=== PATIENT | female | born 1995 | race Hispanic/Latino ===

== ENCOUNTER 2016-08-12 08:33 | Emergency (ER) | payer BC ==
[2016-08-12 09:25] VITALS: BMI 27.3
[2016-08-12 09:28] VITALS: TEMP 99.7
[2016-08-12 09:35] VITALS: BP 108/66; PULSE 108; RESP 19; O2SAT 98
--- NOTE | 2016-08-12 09:44 | ED PDOC ---
Arrival/HPI - General Historian: Patient - General Chief Complaint: Flu-like Symptoms Time Seen by Provider: 08/12/16 09:22 - History of Present Illness Narrative History of Present Illness (Text): 08/12/16 09:41 21yo female with no PMHx present with complaint of body ache, sore throat and headache since this morning. The mother who was by the bedside states both her and her son was recently treated for sinusitis and worried that she might have sinusitis. Pt however denies nasal congestion, rhinorrhea, fever, chills, abdominal pain, nausea, vomiting, any other complaint. (Marques,Marielena A) Past Medical History - Provider Review Nursing Documentation Reviewed: Yes - Infectious Disease Hx of Infectious Diseases: None - Psychiatric Hx Depression: No Hx Emotional Abuse: No Hx Physical Abuse: No Hx Substance Use: No - Past Surgical History Past Surgical History: No Previous - Anesthesia Hx Anesthesia: No - Suicidal Assessment Feels Threatened In Home Enviroment: No Family/Social History - Physician Review Nursing Documentation Reviewed: Yes Family/Social History: Unknown Family HX Smoking Status: Never Smoked Hx Alcohol Use: No Hx Substance Use: No Hx Substance Use Treatment: No Allergies/Home Meds Allergies/Adverse Reactions: Allergies No Known Allergies Allergy (Verified 08/12/16 09:23) Review of Systems - Physician Review All systems were reviewed & negative as marked: Yes - Review of Systems Constitutional: Normal Eyes: Normal ENT: Sore Throat Respiratory: Normal Cardiovascular: Normal Gastrointestinal: Normal Genitourinary Female: Normal Musculoskeletal: Normal Skin: Normal Neurological: Headache Endocrine: Normal Hemo/Lymphatic: Normal Psychiatric: Normal Physical Exam Vital Signs Reviewed: Yes Temperature: Afebrile Blood Pressure: Normal Pulse: Regular Respiratory Rate: Normal Appearance: Positive for: Well-Appearing, Non-Toxic, Comfortable Pain Distress: None Mental Status: Positive for: Alert and Oriented X 3 - Systems Exam Head: Present: Atraumatic, Normocephalic Pupils: Present: PERRL Extroacular Muscles: Present: EOMI Conjunctiva: Present: Normal Mouth: Present: Moist Mucous Membranes Pharnyx: Present: ERYTHEMA. No: EXUDATE, TONSILS ENLARGED, Peritonsilar Swelling, Uvular Deviation, Muffled/Hoarse Voice, Strider, Soft Palate/Uvular Edema Neck: Present: Normal Range of Motion Respiratory/Chest: Present: Clear to Auscultation, Good Air Exchange. No: Respiratory Distress, Accessory Muscle Use Cardiovascular: Present: Regular Rate and Rhythm, Normal S1, S2. No: Murmurs Abdomen: Present: Normal Bowel Sounds. No: Tenderness, Distention, Peritoneal Signs Back: Present: Normal Inspection Upper Extremity: Present: Normal Inspection. No: Cyanosis, Edema Lower Extremity: Present: Normal Inspection. No: Edema Neurological: Present: GCS=15, CN II-XII Intact, Speech Normal, Motor Func Grossly Intact, Normal Sensory Function, Normal Cerebellar Funct, Norm Deep Tendon Reflexes, Gait Normal, Memory Normal, Other (No focal neurological deficit) Skin: Present: Warm, Dry, Normal Color. No: Rashes Psychiatric: Present: Alert, Oriented x 3, Normal Insight, Normal Concentration Vital Signs Temp Pulse Resp BP Pulse Ox 08/12/16 09:34 108 H 19 108/66 98 08/12/16 09:27 99.7 F H Medical Decision Making ED Course and Treatment: I was available for consultation during PA evaluation. The chart reviewed by me , and I agree with disposition. The documented history was done by the physician scutcher tender. The documented physical exam was done by the physician scutcher tender. The documented procedures were done by the physician scutcher tender. (Domingo Becerra) Present with URI symptoms. She was nontoxic appearing. Hemodynamically stable with low grade temp. Was given Pen VK, Decadron and Ibuprofen in ED. DC home with Pen VK. Advised to drink plenty of fluid and rest. Referred to her PMD. TRT ED for any new or worsening symptoms. (Marielena Mohan) - Medication Orders Current Medication Orders: Discontinued Medications Dexamethasone (Decadron Inj) 10 mg IM STAT STA Stop: 08/12/16 09:41 Last Admin: 08/12/16 10:16 Dose: 10 mg Ibuprofen (Motrin Tab) 600 mg PO STAT STA Stop: 08/12/16 09:39 Last Admin: 08/12/16 10:16 Dose: 600 mg Lidocaine HCl (Lidocaine 2% Viscous) 15 ml PO Q3H STA Stop: 08/12/16 09:41 Last Admin: 08/12/16 10:17 Dose: 15 ml Penicillin V Potassium (Penicillin Vk Tab) 500 mg PO STAT STA PRN Reason: Protocol Stop: 08/12/16 09:39 Last Admin: 08/12/16 10:16 Dose: 500 mg Disposition/Present on Arrival - Present on Arrival Any Indicators Present on Arrival: No History of DVT/PE: No History of Uncontrolled Diabetes: No Urinary Catheter: No History of Decub. Ulcer: No History Surgical Site Infection Following: None - Disposition Have Diagnosis and Disposition been Completed?: Yes Disposition Time: 09:45 Patient Plan: Discharge - Disposition Diagnosis: Pharyngitis, Malaise Disposition: HOME/ ROUTINE Patient Problems: Current Active Problems Problem Status Onset Malaise Acute Pharyngitis Acute Condition: STABLE Discharge Instructions (ExitCare): Pharyngitis (ED) Additional Instructions: Drink plenty of fluid and rest Follow up with your Doctor Return to ED for any new or worsening symptoms. Prescriptions: Penicillin VK [Pen-Vee K] 500 mg PO BID #14 tab Referrals: Andreas Hunt MD [Primary Care Provider] - Follow up with primary
== END 2016-08-12 11:08 | disposition home or self-care (01) ==
LOC: ED 08:33
DX: J02.9 Acute pharyngitis, unspecified (principal); R53.81 Other malaise
CPT/HCPCS: 96372; 99283; J1100

== ENCOUNTER 2017-09-25 23:33 | Emergency (ER) | payer BC, OTHER ==
[2017-09-25 23:33] VITALS: BMI 27.4
[2017-09-25 23:44] VITALS: TEMP 97.7; O2SAT 99
--- NOTE | 2017-09-26 00:34 | ED PDOC ---
Arrival/HPI - General Chief Complaint: Allergic Reaction Time Seen by Provider: 09/26/17 00:29 Historian: Patient - History of Present Illness Narrative History of Present Illness (Text): 09/26/17 00:34 This 22 yo female who denies pmh, stated mild allergies to "certain" tomatoes, presents to this ED c/o swelling of lower lips after eating kazakh frieds with Ketchup. Patient stated lip swelling has been improving. Time/Duration: Other (see hpi) Context: Home Past Medical History - Provider Review Nursing Documentation Reviewed: Yes - Infectious Disease Hx of Infectious Diseases: None - Psychiatric Hx Depression: No Hx Emotional Abuse: No Hx Physical Abuse: No Hx Substance Use: No - Past Surgical History Past Surgical History: No Previous - Anesthesia Hx Anesthesia: No - Suicidal Assessment Feels Threatened In Home Enviroment: No Family/Social History - Physician Review Nursing Documentation Reviewed: Yes Family/Social History: Other (noncontributory) Smoking Status: Never Smoked Hx Alcohol Use: No Hx Substance Use: No Hx Substance Use Treatment: No Allergies/Home Meds Allergies/Adverse Reactions: Allergies No Known Allergies Allergy (Verified 08/12/16 09:23) Home Medications: Home Meds Medication Instructions Recorded Confirmed Norgestimate-Ethinyl Estradiol 1 tab PO DAILY 09/25/17 09/25/17 [Tri-Sprintec Tablet] Review of Systems - Review of Systems Constitutional: Normal. absent: Fatigue, Weight Change, Fevers Eyes: Normal ENT: Other ((+) inferior lip swelling). absent: Hearing Changes, Voice Changes , Sore Throat, Rhinorrhea, Epistaxis, Sinus Congestion Respiratory: Normal Cardiovascular: Normal Gastrointestinal: Normal Genitourinary Female: Normal Musculoskeletal: Normal Skin: Normal Neurological: Normal Endocrine: Normal Hemo/Lymphatic: Normal Psychiatric: Normal Physical Exam Vital Signs Temp Pulse Resp BP Pulse Ox 09/25/17 23:43 97.7 F 95 H 17 125/78 99 Temperature: Afebrile Blood Pressure: Normal Pulse: Regular Respiratory Rate: Normal Appearance: Positive for: Well-Appearing, Non-Toxic, Comfortable Pain Distress: None Mental Status: Positive for: Alert and Oriented X 3 - Systems Exam Head: Present: Atraumatic, Normocephalic Pupils: Present: PERRL Extroacular Muscles: Present: EOMI Conjunctiva: Present: Normal Mouth: Present: Moist Mucous Membranes, Normal Tounge. No: Drooling, Trismus, Normal Lips ((+) subtle inferior lip swelling. No surrounding erythema. No gingivitis. No dental abscess) Pharnyx: Present: Normal. No: ERYTHEMA, EXUDATE, TONSILS ENLARGED Neck: Present: Normal Range of Motion, Trachea Midline. No: Meningeal Signs, MIDLINE TENDERNESS, Paraspinal Tenderness Respiratory/Chest: Present: Clear to Auscultation, Good Air Exchange. No: Respiratory Distress, Accessory Muscle Use Cardiovascular: Present: Regular Rate and Rhythm, Normal S1, S2. No: Murmurs Abdomen: No: Tenderness, Distention, Peritoneal Signs, Rebound, Guarding Back: Present: Normal Inspection Upper Extremity: Present: Normal Inspection. No: Cyanosis, Edema Lower Extremity: Present: Normal Inspection, NORMAL PULSES, Normal ROM. No: Edema, CALF TENDERNESS Neurological: Present: GCS=15, CN II-XII Intact, Speech Normal, Motor Func Grossly Intact, Normal Sensory Function, Normal Cerebellar Funct, Gait Normal Skin: Present: Warm, Dry, Normal Color. No: Rashes Psychiatric: Present: Alert, Oriented x 3, Normal Insight, Normal Concentration Medical Decision Making ED Course and Treatment: 09/26/17 01:00 I reviewed the risk of using Prednisone to patient including AVN, DM, glaucoma, osteoporosis. 09/26/17 01:39 Re-evaluation. Patient feels better. Discussed results and plan with patient who expresses understanding. All questions answered and there is agreement with the plan to discharge home with instructions. Patient stable for discharge. Return if symptoms persist or worsen. Re-evaluation Time: 01:39 Reassessment Condition: Re-examined, Improved - Medication Orders Current Medication Orders: Discontinued Medications Diphenhydramine HCl (Benadryl) 50 mg PO STAT STA Stop: 09/26/17 00:31 Last Admin: 09/26/17 00:42 Dose: 50 mg Prednisone (Prednisone Tab) 60 mg PO STAT ONE Stop: 09/26/17 00:30 Last Admin: 09/26/17 00:42 Dose: 60 mg Disposition/Present on Arrival - Present on Arrival Any Indicators Present on Arrival: No History of DVT/PE: No History of Uncontrolled Diabetes: No Urinary Catheter: No History of Decub. Ulcer: No History Surgical Site Infection Following: None - Disposition Have Diagnosis and Disposition been Completed?: Yes Diagnosis: Allergic reaction Disposition: HOME/ ROUTINE Disposition Time: 01:42 Patient Plan: Discharge Condition: GOOD Discharge Instructions (ExitCare): Food Allergy Additional Instructions: Call private doctor for follow up visit in 1-2 days. Take medication as instructed, Return to emergency if symptoms worsen. EpiPen to be used if your throat closes, or if you feel you are going to faint during allergic reaction. Prescriptions: Epinephrine [Epipen] 0.3 mg IJ DAILY PRN #1 auto.injct PRN Reason: Anaphylaxis Famotidine [Pepcid] 40 mg PO DAILY #10 tablet predniSONE [Prednisone] 40 mg PO DAILY #8 tab Referrals: Andreas Hunt MD [Primary Care Provider] - Follow up with primary Forms: [employer] (French)
[2017-09-26 02:01] VITALS: BP 116/70; PULSE 80; RESP 18
== END 2017-09-26 02:01 | disposition home or self-care (01) ==
LOC: ED 23:33
DX: T78.49XA Other allergy, initial encounter (principal); X58.XXXA Exposure to other specified factors, initial encounter